=== PATIENT | female | born 1955 | race Caucasian/White ===

== ENCOUNTER 2021-03-30 01:45 | Observation (INO) | payer BC ==
--- NOTE | 2021-03-30 02:33 | ED ---
Arrhythmia/Palpitations HPI - General Chief Complaint: Chest Pain Stated Complaint: a fib rvr Time Seen by Provider: 03/30/21 01:47 Source: patient, RN/MD, EMS Mode of arrival: EMS - Related Data Allergies Allergy/AdvReac Type Severity Reaction Status Date / Time azithromycin AdvReac Diarrhea Verified 03/30/21 02:04 codeine AdvReac Unknown Verified 03/30/21 02:04 Childhood Review of Systems ROS Statement: Those systems with pertinent positive or pertinent negative responses have been documented in the HPI. ROS Other: All systems not noted in ROS Statement are negative. Past Medical History Past Medical History: Supraventricular Tachycardia (SVT) Additional Past Medical History / Comment(s): UTI History of Any Multi-Drug Resistant Organisms: None Reported Past Surgical History: Cholecystectomy, Heart Catheterization, Tubal Ligation Past Psychological History: No Psychological Hx Reported Smoking Status: Former smoker Past Alcohol Use History: Rare Past Drug Use History: None Reported General Exam General appearance: alert, in no apparent distress, anxious Head exam: Present: atraumatic, normocephalic, normal inspection Eye exam: Present: normal appearance, PERRL, EOMI. Absent: scleral icterus, conjunctival injection, periorbital swelling ENT exam: Present: normal exam, mucous membranes moist Neck exam: Present: normal inspection. Absent: tenderness, meningismus, lymphadenopathy Respiratory exam: Present: normal lung sounds bilaterally. Absent: respiratory distress, wheezes, rales, rhonchi, stridor Cardiovascular Exam: Present: tachycardia, irregular rhythm, normal heart sounds. Absent: systolic murmur, diastolic murmur, rubs, gallop, clicks GI/Abdominal exam: Present: soft, normal bowel sounds. Absent: distended, tenderness, guarding, rebound, rigid Extremities exam: Present: normal inspection, full ROM, normal capillary refill. Absent: tenderness, pedal edema, joint swelling, calf tenderness Back exam: Present: normal inspection Neurological exam: Present: alert, oriented X3, CN II-XII intact Psychiatric exam: Present: normal affect, normal mood Skin exam: Present: warm, dry, intact, normal color. Absent: rash Course Vital Signs 03/30/21 01:48 Temperature 98.5 F Pulse Rate 134 H Respiratory 18 Rate Blood Pressure 131/100 O2 Sat by Pulse 97 Oximetry EKG Findings - EKG Comments: EKG Findings:: EKG shows atrial fibrillation with RVR 128 QRS 90 QTC 446 Disposition Clinical Impression: Atrial fibrillation with RVR, New onset atrial fibrillation Disposition: ADMITTED IP TO THIS HOSP Condition: Good Is patient prescribed a controlled substance at d/c from ED?: No Referrals: Zak Kennedy MD [Primary Care Provider] - 1-2 days
[2021-03-30] MEDS ORDERED: MORPHINE SULFATE 4 MG/ML SYRINGE IV PRN (02:34)
[2021-03-30] MEDS ORDERED: HEPARIN SODIUM 1,000 UN/ML (10ML VL) IV PRN (02:34)
[2021-03-30] MEDS ORDERED: NALOXONE 0.4 MG/ML 1 ML VIAL IV PRN (02:34)
[2021-03-30] MEDS ORDERED: ONDANSETRON 4 MG/2 ML VIAL IVP PRN (02:34)
[2021-03-30] MEDS ORDERED: METOPROLOL TARTRATE 5 MG/5 ML VIAL IVP STA (02:36)
[2021-03-30] MEDS: SODIUM CHLORIDE 0.9% 1,000 ML IV SCH ×3 (02:46→23:14)
[2021-03-30] MEDS: HEPARIN SOD,PORK IN 0.45% NACL 25,000 UNIT in 0.45% NACL 1 250ML.BAG IV SCH ×2 (02:47→23:14)
[2021-03-30] MEDS ORDERED: ACETAMINOPHEN TAB 500 MG TAB PO PRN (02:59)
[2021-03-30] MEDS ORDERED: METOPROLOL TARTRATE 50 MG TAB PO SCH (09:00)
[2021-03-30] MEDS ORDERED: PROPAFENONE 225 MG TAB PO STA (11:28)
--- NOTE | 2021-03-30 13:14 | P.HPIM ---
History of Present Illness Patient pleasant 72-year-old female was transferred from [facility] because of the atrial fibrillation with rapid ventricular rate patient does have a known history of SVT in the past unable to undergo ablation procedure. Although her is pretty completely resolved and did not have any of these episodes for long time. Patient denied any significant chest pain denied any syncopal and shortness of breath troponins are negative. Patient was on Cardizem which was discontinued and patient was started on metoprolol. Patient was also started on propafenone by cardiology. Patient does have leukocytosis but no fever or any other evidence of infection at this time patient is not dehydrated at this time. Cardiology was consulted. REVIEW OF SYSTEMS: CONSTITUTIONAL: No fever, no malaise, no fatigue. HEENT: No recent visual problems or hearing problems. Denied any sore throat. CARDIOVASCULAR: No chest pain, orthopnea, PND, no syncope. PULMONARY: No shortness of breath, no cough, no hemoptysis. GASTROINTESTINAL: No diarrhea, no nausea, no vomiting, no abdominal pain. NEUROLOGICAL: No headaches, no weakness, no numbness. HEMATOLOGICAL: Denies any bleeding or petechiae. GENITOURINARY: Denies any burning micturition, frequency, or urgency. MUSCULOSKELETAL/RHEUMATOLOGICAL: Denies any joint pain, swelling, or any muscle pain. ENDOCRINE: Denies any polyuria or polydipsia. The rest of the 14-point review of systems is negative. PHYSICAL EXAMINATION: GENERAL: The patient is alert and oriented x3, not in any acute distress. Well developed, well nourished. Tachycardic and rapid ventricular rate HEENT: Pupils are round and equally reacting to light. EOMI. No scleral icterus. No conjunctival pallor. Normocephalic, atraumatic. No pharyngeal erythema. No thyromegaly. CARDIOVASCULAR: S1 and S2 present. No murmurs, rubs, or gallops. PULMONARY: Chest is clear to auscultation, no wheezing or crackles. ABDOMEN: Soft, nontender, nondistended, normoactive bowel sounds. No palpable organomegaly. MUSCULOSKELETAL: No joint swelling or deformity. EXTREMITIES: No cyanosis, clubbing, or pedal edema. NEUROLOGICAL: Gross neurological examination did not reveal any focal deficits. SKIN: No rashes. Assessment and plan -Atrial fibrillation with rapid ventricular rate: Cardiology valid the patient patient is on Rythmol and metoprolol patient will be monitored continue with IV heparin -Patient is on antibiotics for long for recurrent UTIs although antibiotics will not be beneficial to use on continuous basis and medics will be held for now History of SVT in the past DVT prophylaxis: Patient is on anticoagulation with heparin Past Medical History Past Medical History: Supraventricular Tachycardia (SVT) Additional Past Medical History / Comment(s): UTI History of Any Multi-Drug Resistant Organisms: None Reported Past Surgical History: Cholecystectomy, Heart Catheterization, Tubal Ligation Past Psychological History: No Psychological Hx Reported Smoking Status: Former smoker Past Alcohol Use History: Rare Past Drug Use History: None Reported Medications and Allergies Home Medications Medication Instructions Recorded Confirmed Type Ascorbic Acid [Vitamin C] 1,000 mg PO DAILY 03/30/21 03/30/21 History Cephalexin [Keflex] 500 mg PO DAILY 03/30/21 03/30/21 History Cholecalciferol (Vitamin D3) 75 mcg PO DAILY 03/30/21 03/30/21 History [Vitamin D3 (3000 Iu)] Clobetasol Propionate [Temovate 1 applic TOPICAL BID 03/30/21 03/30/21 History 0.05% Cream] Magnesium Oxide [Mag-Ox] 400 mg PO DAILY 03/30/21 03/30/21 History hydrOXYzine HCL [Atarax] 25 mg PO HS 03/30/21 03/30/21 History methylPREDNISolone Dose Pack See Taper PO DIRECTED 03/30/21 03/30/21 History [Medrol Dose Pack] Allergies Allergy/AdvReac Type Severity Reaction Status Date / Time adhesive tape Allergy Unknown Verified 03/30/21 06:48 erythromycin base Allergy Unknown Verified 03/30/21 06:48 Penicillins Allergy Unknown Verified 03/30/21 06:48 azithromycin AdvReac Diarrhea Verified 03/30/21 06:48 codeine AdvReac Unknown Verified 03/30/21 06:48 Childhood Physical Exam Vitals: Vital Signs Temp Pulse Pulse Resp BP Pulse Ox 03/30/21 12:10 144 H 18 118/87 98 03/30/21 10:00 122 H 03/30/21 09:00 119 H 03/30/21 08:31 97.9 F 131 H 18 139/94 98 03/30/21 04:15 122 H 18 118/84 95 03/30/21 03:11 133 H 03/30/21 03:02 123 H 18 114/97 95 03/30/21 02:00 136 H 16 03/30/21 01:48 98.5 F 134 H 18 131/100 97 Intake and Output 03/29/21 03/30/21 03/30/21 22:59 06:59 14:59 Other: Weight 90.718 kg Results Labs: Abnormal Lab Results - Last 24 Hours (Table) 03/30/21 Range/Units 08:48 APTT 46.9 H (22.0-30.0) sec
--- NOTE | 2021-03-30 16:45 | ECHOF ---
Referral Reason:A fib MEASUREMENTS -------- HEIGHT: 170.2 cm WEIGHT: 90.7 kg BP: 139/94 RVIDd: 3.2 cm (< 3.3) IVSd: 1.1 cm (0.6 - 1.1) LVIDd: 4.4 cm (3.9 - 5.3) LVPWd: 1.0 cm (0.6 - 1.1) IVSs: 1.6 cm LVIDs: 3.0 cm LVPWs: 1.6 cm LA Diam: 3.8 cm (2.7 - 3.8) LAESV Index (A-L): 30.08 ml/m Ao Diam: 3.0 cm (2.0 - 3.7) AV Cusp: 2.2 cm (1.5 - 2.6) MV EXCURSION: 15.618 mm (> 18.000) MV EF SLOPE: 71 mm/s (70 - 150) EPSS: 1.2 cm MV E Dilshad: 1.09 m/s MV DecT: 164 ms MV A Dilshad: 0.46 m/s MV E/A Ratio: 2.37 AR PHT: 1427 ms RAP: 15.00 mmHg RVSP: 36.95 mmHg FINDINGS -------- Sinus rhythm. This was a technically good study. The left ventricular size is normal. Left ventricular wall thickness is normal. Overall left vent ricular systolic function is mildly impaired with, an EF between 45 - 50 %. The right ventricle is normal in size. LA is midly dilated 29-33ml/m2. The right atrium is normal in size. Interatrial and interventricular septum intact. There is mild aortic valve sclerosis. There is mild aortic regurgitation. Mild mitral regurgitation is present. Mild tricuspid regurgitation present. There is mild pulmonary hypertension. The right ventricular systolic pressure, as measured by Doppler, is 36.95mmHg. Trace/mild (physiologic) pulmonic regurgitation. The aortic root size is normal. The inferior vena cava is dilated with no significant inspiratory collapse which is consistent estima griselda right atrial pressure of >15 mmHg. There is no pericardial effusion. CONCLUSIONS -------- 1. The left ventricular size is normal. 2. Left ventricular wall thickness is normal. 3. Overall left ventricular systolic function is mildly impaired with, an EF between 45 - 50 %. 4. LA is midly dilated 29-33ml/m2. 5. There is mild aortic valve sclerosis. 6. There is mild aortic regurgitation. 7. Mild mitral regurgitation is present. 8. Mild tricuspid regurgitation present. 9. There is mild pulmonary hypertension. 10. The right ventricular systolic pressure, as measured by Doppler, is 36.95mmHg. 11. Trace/mild (physiologic) pulmonic regurgitation. 12. The inferior vena cava is dilated with no significant inspiratory collapse which is consistent es timated right atrial pressure of >15 mmHg. 13. There is no pericardial effusion. PERSONNEL WORKER: Riya Herbert RDCS
--- NOTE | 2021-03-30 17:17 | CONS ---
CONSULTATION HISTORY OF PRESENT ILLNESS: This is a 66-year-old lady who has been admitted to the hospital through the emergency room. She came in upon transfer from [facility] because of atrial fibrillation and rapid ventricular rate. She is known to have paroxysmal SVT that occurs about once a year or so and she does some vagal maneuvers. However, this time it was a different episode. She felt that her heart was racing and she was unable to slow it down and she went to the emergency room, was found to be in atrial fibrillation. She was started on a Cardizem drip without much improvement and started on metoprolol and transferred here. She is more comfortable. The rate is about 120. She had a stress test about a year ago that was negative and also has a remote history of cardiac cath. The details are unavailable. She is otherwise asymptomatic, does not have any hypertension or diabetes. PAST MEDICAL HISTORY: 1. SVT. 2. Unremarkable cardiac cath. 3. Status post cholecystectomy. 4. Status post tubal ligation. MEDICATIONS: At home, she takes: Vitamin supplements and Keflex. Details are unclear. She is not on any antihypertensives. ALLERGIES: HE IS ALLERGIC TO ZITHROMAX, CODEINE, PENICILLIN. PHYSICAL EXAMINATION: On examination, blood pressure is 130/70, pulse rate is about 124 per minute, irregular. HEENT unremarkable, Fundus was not examined by me. NECK is supple. There is no JVD. I do not hear a carotid bruit. HEART exam reveals S1, S2 with irregular rhythm, tachycardia. No significant murmurs. LUNGS are clear. ABDOMEN is soft, nontender. Lower EXTREMITIES reveal normal pulses. No edema. CENTRAL NERVOUS SYSTEM grossly within normal limits. EKG revealed atrial fib, moderately rapid ventricular rate. IMPRESSION: 1. New onset atrial fibrillation. 2. History of supraventricular tachycardia. 3. History of a negative stress test and unremarkable cardiac cath, details unavailable. RECOMMENDATIONS: I am recommending an echocardiogram, a TSH level. I will also try Rythmol 450 mg single dose since patient does not have any CAD according to her history. If he converts to sinus rhythm she may not require long-term anticoagulation since this is the first episode and her CHADS score is low. Discussed this with the patient. She will be admitted with the Rythmol and monitoring for 24 hours. Thank you very much for the consult. MMODL / IJN: [id number] /
[2021-03-30] MEDS: CLOBETASOL PROP 0.05% CR 15GM TOPICAL SCH (20:40)
[2021-03-30] MEDS ORDERED: METOPROLOL TARTRATE 25 MG TAB PO SCH (21:00)
[2021-03-30 21:42] VITALS: RESP 16
--- NOTE | 2021-03-31 07:57 | P.DS ---
Providers Date of admission: 03/30/21 02:34 Attending physician: Autumn Major Consults: 03/30/21 02:34 Consult Physician Routine Consulting Provider: Sarika Leon Consult Reason/Comments: afib Do you want consulting provider notified?: Yes Primary care physician: Zak Callahan [facility] Course: Patient pleasant 72-year-old female was transferred from [facility] because of the atrial fibrillation with rapid ventricular rate patient does have a known history of SVT in the past unable to undergo ablation procedure. Although her is pretty completely resolved and did not have any of these e pisodes for long time. Patient denied any significant chest pain denied any syncopal and shortness of breath troponins are negative. Patient was on Cardizem which was discontinued and patient was started on metoprolol. Patient was also started on propafenone by cardiology. Patient does have leukocytosis but no fever or any other evidence of infection at this time patient is not dehydrated at this time. Cardiology was consulted. 03/31/2021 Patient converted to sinus rhythm and tachycardia denied since this is a proximal A. fib and patient GRANT anticoagulation but regarding aspirin 81 mg and patient will be discharged on metoprolol as well. Patient will follow up with the cardiology here or with her fiber worker will be discharged today. PHYSICAL EXAMINATION: GENERAL: The patient is alert and oriented x3, not in any acute distress. Well developed, well nourished. Tachycardic and rapid ventricular rate HEENT: Pupils are round and equally reacting to light. EOMI. No scleral icterus. No conjunctival pallor. Normocephalic, atraumatic. No pharyngeal erythema. No thyromegaly. CARDIOVASCULAR: S1 and S2 present. No murmurs, rubs, or gallops. PULMONARY: Chest is clear to auscultation, no wheezing or crackles. ABDOMEN: Soft, nontender, nondistended, normoactive bowel sounds. No palpable organomegaly. MUSCULOSKELETAL: No joint swelling or deformity. EXTREMITIES: No cyanosis, clubbing, or pedal edema. NEUROLOGICAL: Gross neurological examination did not reveal any focal deficits. SKIN: No rashes. Assessment and plan -Atrial fibrillation with rapid ventricular rate: Patient is presently sinus rhythm and will not require long-term anticoagulation. Cleared by cardiology will be discharged today -Patient is on antibiotics for long for recurrent UTIs although antibiotics will not be beneficial to use on continuous basis antibiotics will be discontinued. History of SVT in the past Patient Condition at Discharge: Good Plan - Discharge Summary Discharge Rx Participant: No New Discharge Prescriptions: New Aspirin 81 mg PO DAILY #30 tab Metoprolol Tartrate [Lopressor] 12.5 mg PO DAILY@2100 #30 tab Metoprolol Tartrate [Lopressor] 25 mg PO DAILY #30 tab Continue Ascorbic Acid [Vitamin C] 1,000 mg PO DAILY Clobetasol Propionate [Temovate 0.05% Cream] 1 applic TOPICAL BID methylPREDNISolone Dose Pack [Medrol Dose Pack] See Taper PO DIRECTED Magnesium Oxide [Mag-Ox] 400 mg PO DAILY Cholecalciferol (Vitamin D3) [Vitamin D3 (3000 Iu)] 75 mcg PO DAILY Discontinued hydrOXYzine HCL [Atarax] 25 mg PO HS Cephalexin [Keflex] 500 mg PO DAILY Discharge Medication List Ascorbic Acid [Vitamin C] 1,000 mg PO DAILY 03/30/21 [History] Cholecalciferol (Vitamin D3) [Vitamin D3 (3000 Iu)] 75 mcg PO DAILY 03/30/21 [History] Clobetasol Propionate [Temovate 0.05% Cream] 1 applic TOPICAL BID 03/30/21 [History] Magnesium Oxide [Mag-Ox] 400 mg PO DAILY 03/30/21 [History] methylPREDNISolone Dose Pack [Medrol Dose Pack] See Taper PO DIRECTED 03/30/21 [History] Aspirin 81 mg PO DAILY #30 tab 03/31/21 [Rx] Metoprolol Tartrate [Lopressor] 12.5 mg PO DAILY@2100 #30 tab 03/31/21 [Rx] Metoprolol Tartrate [Lopressor] 25 mg PO DAILY #30 tab 03/31/21 [Rx] Follow up Appointment(s)/Referral(s): Satinder Lutz MD [STAFF PHYSICIAN] - 1 Week Zak Kennedy MD [Primary Care Provider] - 3 Days
[2021-03-31] MEDS: CLOBETASOL PROP 0.05% CR 15GM TOPICAL SCH (08:34)
[2021-03-31 08:51] VITALS: BP 112/63; PULSE 66; TEMP 97.8
[2021-03-31] MEDS ORDERED: CHOLECALCIFEROL 25 MCG (1000 IU) TABLET PO SCH (09:00)
[2021-03-31] MEDS ORDERED: ASPIRIN 81 MG PO SCH (09:00)
[2021-03-31] MEDS ORDERED: MAGNESIUM OXIDE 400 MG TAB PO SCH (09:00)
[2021-03-31] MEDS ORDERED: METOPROLOL TARTRATE 25 MG TAB PO SCH (09:00)
--- NOTE | 2021-03-31 10:34 | PN ---
PROGRESS NOTE Mrs. Blas has converted to sinus rhythm with 450 mg of Rythmol yesterday. She is doing well. Her GRANT score is low. She had a cardiac cath 2 years ago at [facility] in [place] with no obstructive CAD and a negative stress test a year ago. She is in sinus rhythm. I am recommending she can be discharged on metoprolol tartrate 25 mg in the morning, 12.5 in the evening, and follow up with me in the next 2 weeks, or she can follow up with her claim representative in [facility]. Vitals are signs. Stable no JVD. S1, S2 heard normally. Lungs are clear. Abdomen is soft, nontender. Lower extremities reveal normal pulses. No edema. Central nervous system is normal. IMPRESSION: 1. Episode of paroxysmal atrial fibrillation, back in sinus rhythm with Rythmol 450 mg. 2. History of supraventricular tachycardia in the past; details unavailable. 3. Unremarkable cardiac catheterization per patient two years ago. RECOMMENDATION: Patient can be discharged on aspirin and beta dayne. No anticoagulation is necessary. MMODL / IJN: [id number] /
[2021-03-31] MEDS ORDERED: METOPROLOL TARTRATE 12.5 MG TAB PO SCH (21:00)
== END 2021-03-31 10:07 | disposition home or self-care (01) ==
LOC: EC 01:45 → 3SCARD 02:34
PROVIDERS: ADMIT Hospitalist; ATTEND Hospitalist
DX: I48.0 Paroxysmal atrial fibrillation (principal); D72.829 Elevated white blood cell count, unspecified; I47.1 Supraventricular tachycardia; Z20.822 Contact with and (suspected) exposure to COVID-19; Z79.01 Long term (current) use of anticoagulants; Z79.2 Long term (current) use of antibiotics; Z79.52 Long term (current) use of systemic steroids; Z79.899 Other long term (current) drug therapy; Z88.0 Allergy status to penicillin; Z88.1 Allergy status to other antibiotic agents; Z88.5 Allergy status to narcotic agent; Z91.048 Other nonmedicinal substance allergy status; Z87.440 Personal history of urinary (tract) infections; Z90.49 Acquired absence of other specified parts of digestive tract; Z98.51 Tubal ligation status; Z98.890 Other specified postprocedural states; Z87.891 Personal history of nicotine dependence
CPT/HCPCS: 96365; 96366 ×2; 96375; 99285; 93306; 84443; 84484; 85730; 87635; G0378 ×2; J1644; 93005